=== PATIENT | female | born 1970 | race Caucasian/White ===

== ENCOUNTER 2019-05-01 06:10 | Day surgery (SDC) | payer BC ==
[2019-04-30 11:36] LABS: Absolute Lymphocytes (CBC) 1.3 K/uL (0.7-4.9); Basophils % 0.6 % (0-1.3); Hematocrit 39.6 % (36.0-45.0); Lymphocytes % 26.6 % (15.3-44.8); MPV 8.7 fL (7.6-11.3); RBC Red Blood Cell Count 4.62 M/uL (3.86-4.86)
[~2019-05-01 06:10] MED LIST: DOXYCYCLINE 200 MG in NA CHLORIDE 0.9% 250 ML IVPB SCH
[2019-05-01] MEDS ORDERED: Ringers Lactate 1,000 ML IV ONE (06:22)
[2019-05-01] MEDS ORDERED: SILVER NITRATE 1 APPL TOP ONE (06:59)
[2019-05-01] MEDS ORDERED: NA CHLORIDE 0.9% 1,000 ML ONE (06:59)
[2019-05-01] MEDS ORDERED: ONDANSETRON 4 MG/2 ML VIAL ONE (07:12)
[2019-05-01] MEDS ORDERED: FENTANYL CITR 100 MCG/2 ML ONE (07:12)
[2019-05-01] MEDS ORDERED: PROPOFOL 200 MG/20 ML VIAL IV ONE (07:12)
[2019-05-01] MEDS ORDERED: LIDOCAINE 2% MPF 5 ML VIAL ONE (07:12)
[2019-05-01] MEDS ORDERED: MIDAZOLAM HCL 2 MG/2 ML INJ ONE (07:12)
[2019-05-01] MEDS ORDERED: GLYCOPYRROLATE 0.2 MG/ML SYR ONE (07:47)
--- NOTE | 2019-05-01 08:07 | PREOPHP ---
Date of Admission: 05/01/2019 Mrs. Laureano is a 49-year-old female, 2, para 2-0-0-2, who is status post men opause, documented on a couple of different FSH levels, 6 months apart. She has had some problems wi th some irregular bleeding because of this and the inability to do in office endometrial biopsy. She is admitted to day surgery for hysteroscopy, D and C. Past Medical History: Includes 2 vaginal deliveries without difficulties. History of prior endometr ial ablation for heavy bleeding. Current Medications: She is on no medications on a regular basis. She lists allergy to sulfa[QAMARK ER] Lortab causing vomiting. Social History: She does not smoke. Family History: Noncontributory. Review of Systems: She reports no recent cough, cold, fever, or chills. She denies recent nausea or vomiting. She bonilla es breast knots or lumps. She denies any bowel issues or change in vaginal discharge other than the irregular bleeding. Physical Examination: General: Reveals a pleasant female, in no apparent distress. Neck: Supple without adenopathy or thyromegaly. Lungs: Clear. Cardiac: Regular rate and rhythm without murmurs. Breasts: Not examined. Abdomen: Nontender without organomegaly or splenomegaly. Pelvic: Normal female external genitalia. Vaginal wall is pink and rugated. Vaginal vault shows so me thinning expected with menopausal status. Cervix: Multiparous, somewhat stenotic. Bimanual no abnormalities. Extremities: No cyanosis, clubbing, or edema. Impression: Postmenopausal bleeding. Plan: The patient will undergo hysteroscopy, D and C. risks are discussed. She has signed operative permit in my presence. PAUL/CHARLES Voice ID: [id number]
[2019-05-01] MEDS: MEPERIDINE HCL 25 MG/0.5 ML ONE ×2 (08:59→09:07)
[2019-05-01 10:03] VITALS: BP 144/65; TEMP 97.1; O2SAT 98
--- NOTE | 2019-05-05 10:09 | DS ---
Date of Discharge: 05/01/2019 DISMISSAL SUMMARY Final Hospital Discharge Diagnosis: Postmenopausal bleeding. Procedure: Hysteroscopy. Hospital Course: The patient is a 49-year-old female, admitted for hysteroscopy, D and C for postmenopausal bleeding. Unfortunately, hysteroscopic exam of the uterus was incomplete b ecause of intrauterine scarring adhesions post ablation and D and C was not able to be accomplished. Patient was dismissed to be seen back in my office in 2 weeks for followup. Lab work included an ad mission hemoglobin and hematocrit of 13.7 and 39.6. PAUL/CHARLES Voice ID: [id number] Report ID: [id number]
--- NOTE | 2019-05-05 10:09 | OP ---
Surgeon: Shun Torres MD Anesthesiologist: Keyona Orourke and Zachary Leavitt MD. Preoperative Diagnosis: Postmenopausal bleeding. Procedure: Hysteroscopy. Postoperative Diagnosis: Postmenopausal bleeding with intrauterine adhesions. Description Of Procedure: After satisfactory level of general anesthesia was obtained, patient was p repped and draped in the usual fashion in high leg holders. Cervix grasped with single-tooth tenacul um. The hysteroscope introduced, however, would not go beyond the isthmus of the cervix in greater e xtent with multiple intrauterine synechiae or scarring noted. Because of this, visualization of the entire endometrium was not possible and D and C was not able to be accomplished. Patient was awakene d and taken to recovery room in satisfactory condition. PAUL/CHARLES Voice ID: [id number] Report ID: [id number]
== END 2019-05-01 09:55 | disposition home or self-care (01) ==
LOC: OR 06:10
PROVIDERS: ATTEND Specialist
PROC: 0UJD8ZZ Inspection of Uterus and Cervix, Via Natural or Artificial Opening Endoscopic (ICD-10-PCS; principal; 2019-05-01 07:30)
DX: N95.0 Postmenopausal bleeding (principal); N85.6 Intrauterine synechiae; Z88.6 Allergy status to analgesic agent; Z88.2 Allergy status to sulfonamides
CPT/HCPCS: 85025; 36415; 84703; 58555; J2704; J2250; J3010; J2175; J7120; J7030 ×2; J2405

== ENCOUNTER 2019-09-23 06:23 | Day surgery (SDC) | payer BC ==
[2019-09-16 17:18] LABS: Absolute Lymphocytes (CBC) 2.5 K/uL (0.7-4.9); Basophils % 0.6 % (0-1.3); Hematocrit 41.8 % (36.0-45.0); Lymphocytes % 42.4 % (15.3-44.8); MPV 8.4 fL (7.6-11.3)
[2019-09-16 17:21] LABS: Urine Appearance CLEAR; Urine Bilirubin NEGATIVE (NEG); Urine Blood NEGATIVE (NEG); Urine Color YELLOW; Urine Glucose NEGATIVE (NEG); Urine Protein NEGATIVE (NEG); Urine Specific Gravity <=1.005 (1.005-1.030); Urine Urobilinogen 0.2 mg/dL (0.2-1.0); Urine pH 6.5 (5.0-7.0)
[2019-09-16 17:31] LABS: Urine Microscopic Reflex NO UMIC
--- NOTE | 2019-09-17 05:28 | EKG ---
Test Date: 2019-09-16 Test Time: 16:22:14 Residential Direct Support Professional: MARITZA MEASUREMENT RESULTS: Intervals: Rate: 57 TN: 210 QRSD: 82 QT: 404 QTc: 393 [place]: P: 50 TN: 210 QRS: 76 T: 31 INTERPRETIVE STATEMENTS: Sinus bradycardia with 1st degree AV block Otherwise normal ECG Compared to ECG 03/11/2001 06:38:00 First degree AV block now present Sinus tachycardia no longer present Ventricular premature complex(es) no longer present Electronically Signed On 09-17-19 05:27:36 AUDIO RECORDING ENGINEER by Kenny Lau
--- NOTE | 2019-09-17 10:22 | EKG ---
Test Date: 2019-09-16 Test Time: 16:25:34 Geography Professor: MARITZA MEASUREMENT RESULTS: Intervals: Rate: 63 IA: 186 QRSD: 82 QT: 398 QTc: 407 [place]: P: 30 IA: 186 QRS: 77 T: 33 INTERPRETIVE STATEMENTS: Normal sinus rhythm Normal ECG Compared to ECG 09/16/2019 16:22:14 Sinus bradycardia no longer present First degree AV block no longer present Electronically Signed On 09-17-19 10:21:36 TECHNICAL SALES ADVISOR by Kenny Lau
[2019-09-22 10:29] LABS: Specific Gravity >= 1.030 (1.005-1.030)
--- OUTSIDE RECORDS SUMMARY | 2019-09-23 06:28 | XMS REPORT ---
:1970 [facility] Address [address] [place] [address] Dr. Lee [address] [place] [address] Care Team Providers Name Role Phone Unavailable Unavailable Unavailable Problems This patient has no known problems. Allergies, Adverse Reactions, Alerts This patient has no known allergies or adverse reactions. Medications This patient has no known medications.
[2019-09-23] MEDS ORDERED: CEFAZOLIN/SWI 2gm 2 GM/20 ML SYR ONE (06:54)
[2019-09-23] MEDS ORDERED: SCOPOLAMINE HYDROBROMIDE PATCH TD ONE ×2 (06:54→07:05)
[2019-09-23] MEDS ORDERED: Ringers Lactate 1,000 ML IV ONE ×3 (06:54→10:49)
[2019-09-23] MEDS ORDERED: propofoL 200 MG/20 ML VIAL IV ONE (07:14)
[2019-09-23] MEDS ORDERED: MIDAZOLAM HCL 2 MG/2 ML INJ ONE (07:14)
[2019-09-23] MEDS ORDERED: LIDOCAINE 2% MPF 5 ML VIAL ONE (07:15)
[2019-09-23] MEDS ORDERED: FENTANYL CITR 250 MCG/5 ML ONE (07:15)
[2019-09-23] MEDS ORDERED: GLYCOPYRROLATE 0.2 MG/ML SYR ONE (07:15)
[2019-09-23] MEDS ORDERED: BUPIVACAINE 0.25% PF 30 ML VIAL ONE (07:22)
[2019-09-23] MEDS ORDERED: ONDANSETRON 4 MG/2 ML VIAL ONE ×2 (07:23→10:54)
[2019-09-23] MEDS ORDERED: ROCURONIUM 50 MG/5 ML VIAL IV ONE (08:26)
[2019-09-23] MEDS ORDERED: EPHEDRINE SULF 50 MG/ML VIAL ONE (09:31)
[2019-09-23] MEDS ORDERED: dexAMETHasone 10 MG/ML VIAL ONE (09:32)
[2019-09-23] MEDS ORDERED: KETOROLAC 30 MG/ML INJ ONE (09:33)
[2019-09-23] MEDS ORDERED: MEPERIDINE HCL 25 MG/0.5 ML ONE (09:45)
[2019-09-23] MEDS: HYDROMORPHONE HCL 1 MG/ML INJ ONE ×7 (10:52→11:26)
[2019-09-23] MEDS ORDERED: HYDROCODONE/APAP 5/325 MG TAB ONE (12:18)
[2019-09-23] MEDS ORDERED: IBUPROFEN 200 MG TAB PO ONE (15:13)
[2019-09-23 16:34] VITALS: BP 122/57; TEMP 97.4; O2SAT 100
--- NOTE | 2019-09-23 20:02 | OP ---
Date of Procedure: 09/23/2019 Surgeon: Charamine Gomez MD Supervisor Sanding: Klarissa Johnson. Preoperative Diagnoses: Recurrent menorrhagia, pelvic pain. Patient is status post ablation. Postoperative Diagnoses: Recurrent menorrhagia, pelvic pain. Patient is status post ablation. Procedures Performed: Total laparoscopic hysterectomy, bilateral salpingo-oophorectomy, cystoscopy, and superficial bladder oversew of the laceration. Anesthesia: General endotracheal. Estimated Blood Loss: 50. Specimens: Uterus, bilateral tubes and ovaries. Findings: The uterine cavity was ablated. Canal could not be identified and placement of the VCare was extremely limited and had to be only in the distal part of the endometrial canal. The fixation o f the VCare cup was difficult as well due to this. Intra-abdominally, ovaries, tubes, uterus unremarkable at the level of the bladder. There appeared t o be dense adhesions from the dome of the bladder to the lower aspect of the uterus. Here, the disse ction was performed to expose the VCare cup, partially difficult due to the cup placement due to subo ptimal cannulization and also likely some inflammation in this area. Indications For Procedure: Patient is a 49-year-old, referred to me by Dr. Torres. She had an ab lation in the past for heavy bleeding. She had recurrent bleeding and since she was 49 and perimenop ausal, endometrial sampling was deemed to be important. Attempt was made by him to visualize with th e hysteroscope, but due to the intrauterine adhesions, he was unable to enter the uterine cavity, so she was referred to me and after examination, she had suprapubic tenderness and fundal tenderness as well and suspicion for either a hematometra or very uncommon to help pyometra that were suspected. D iscussed with the patient about the different options, which included attempt to recanalized with the help of scissors during the hysteroscope. However, the downside to this would be that it would be r estenosed and possibly lead to the same problem as we are dealing with now and the other option is to do hysterectomy including removal of tubes and ovaries. After discussing both options, benefits and risks and recovery time for both, she was consented to have the hysterectomy. Description Of Procedure: She was brought to the OR. 2 g of Ancef were given. The patient was plac ed in a supine fashion on the operating table. General anesthesia was given, placed in a dorsal lith otomy position. Arms tucked by the side. Pelvic exam performed uterus anteflexed. Abdomen, vulva, vagina and perineum prepped and draped in a sterile fashion. Casper placed to drain t he bladder and speculum placed to expose the cervix. Anterior lip held with the Allis clamp. This a raulito was then draped. A 1 cm infraumbilical incision was made with a scalpel using the open laparosco py technique fascia and was incised, tagged with 0 Vicryl sutures. Peritoneum entered sharply and S- retractors placed. Colby introduced. Insufflation was done. Site of entry was checked, it was unr emarkable. A 10 mm suprapubic and 5 mm left lower quadrant incisions were placed. Trocars introduce d under direct vision. Then, the uterus was visualized and no other adhesions appeared to be on the anterior aspect of the uterine wall. So went back down and attempt was placed to further progress wi th the uterine sound, but it was very difficult to advance past 5.5 cm. So, at this point, the sound was removed. The VCare was introduced. The probe to 5.5 bulb inflated and then the cup fixed in pl jered. Casper was connected to LR bag, emptied 500. This was for filling as well as for emptying. After changing my gloves, went back to the laparoscopic part. Both ureters were coursing in the norm al way without any distortion. Both tubes and ovaries normal. Minimal endometriosis seen in the pos terior aspect of the uterus, where the uterosacrals were attached to the top of the vagina and then v shamir minimal endometriosis in the periureteric area in the proximal part of the pelvic ureter on the l eft side. Ovaries, tubes were first , first on the left side. The tubo-ovarian ligament, m esosalpinx tube and round ligament were all taken down. Then, the peritoneum opened up anteriorly an d dissection performed to get to the bladder flap here as the dissection was being performed. There was dense tissue which was not letting the peritoneum peel off and the area of the anterior vaginal w all got into what appeared to be detrusor muscle fibers. So, then this area was left alone, then too k down the posterior peritoneum all the way to the uterosacral. Then, broad ligament was skeletonize d to expose the vessels on the left side then on the right side. Went on to the opposite side taking down the utero-ovarian ligament, round ligament, mesosalpinx, tube, then posterior broad ligament ta jaqueline to the uterosacral on the right side and then anterior join with the bladder flap from the other side. The broad ligament was taken down, vessels skeletonized anteriorly. The bladder appeared to b e much more dense, unsure if there was inflammation, may be endometriosis unsure. So, I found the VC are cup in the proximal part of it hugging close to the uterus. The vessels were taken down on the r ight side with the bipolar basket tip and the LigaSure. Then, once I got access to the anterior wall , the bladder was further taken down here and then I was able to identify the anterior vaginal wall v shamir well. The vesicovaginal space was entered. The bladder was dissected inferiorly here. Then, ca rdinal ligaments were taken down with the help of the LigaSure on the right side, then on the left si de, went to take down the rest of the bladder adhesions and dissected down. Then the vessels were ta jaqueline down with the bipolar basket tip and the LigaSure and the cardinal ligament was taken down with t he LigaSure. Then, monopolar hook blade used to perform a circumferential colpotomy. Specimen retri eved through the vagina. The tubes and ovaries were removed with the help of the LigaSure and retrie shayan through the vagina and the suprapubic port. Thorough irrigation and suction were performed. The edges of the colpotomy were cauterized in the an terior and posterior aspects with a medium tip bipolar, not much cautery need to be used. Thorough i rrigation and suction were performed. All pedicles were completely dry and plan was to close the col potomy. With the help of 0 Vicryl, CT-1 needle was taken and angle stitch placed on the right side. Then, a qlumhs-yl-xsagi including the uterosacral and reattaching into the anterior and posterior va ginal wall was done on the left side. Similarly, a simple 0 Vicryl stitch lateral to the angle was p laced and then 0 Vicryl stitch through the uterosacral was placed to reattached to the anterior poste rior vaginal shi and closure was completed with another 5th ndqstm-as-ytgfq suture in the middle wi th 0 Vicryl. After this was done completely, thorough irrigation and suction were performed with exc ellent hemostasis here. Then, attention was directed to the area, where the detrusor fibers were exp osed and dissection was done here looking for the plane for the anterior vaginal wall and the cup kesha eared to have a superficial laceration on the detrusor, so a 3-0 Vicryl suture was taken in a continu ous running fashion, closed this about 2 cm area on the left lateral aspect on the dome. This was do ne without any problem. It was not closed to the ureter. Again, it was in the anterior wall, slight ly lateral. Then, the bladder was filled and tested even before the repair was done. Then, again af ter the repair, there was no evidence of any urinary leakage. There was not even visualization of th e bladder urothelium. It was not deep enough to see it. After thorough irrigation was performed of the bladder, bladder was then drained with a Casper. Then, I went on to remove all the trocars. The trocar sites fascia at the suprapubic and the umbilicus we re closed with [id number] 0 Vicryl sutures and interrupted 4-0 Vicryl sutures in all incisions a nd Dermabond. The vaginal bulb was removed. The Casper was removed. Cystoscopy was performed with a 17-[place] sheath, 30-degree lens, normal saline. There were strong ureteric jets from both ureteric orifices. No other anomaly was noted. No evidence of any sutures. No evidence of any trauma or br uising. The laceration was very superficial and this was confirmed after the cystoscopy as well. So , plan was to leave the Casper out and just give time voiding instructions and frequent voids for the patient. No need for a Casper drainage. Vagina was cleaned up. The bladder was drained. Instrument , needle, and sponge counts were done and were correct at end of the case. The patient tolerated the procedure well. She was recovered from anesthesia and taken to PACU in stable condition. GIANCARLO/CHARLES Voice ID: [id number] Report ID: [id number]
== END 2019-09-23 15:45 | disposition home or self-care (01) ==
LOC: OR 06:23
PROVIDERS: ATTEND Obstetrics & Gynecology
PROC: 0UT24ZZ Resection of Bilateral Ovaries, Percutaneous Endoscopic Approach (ICD-10-PCS; 2019-09-23)
PROC: 0UT74ZZ Resection of Bilateral Fallopian Tubes, Percutaneous Endoscopic Approach (ICD-10-PCS; 2019-09-23)
PROC: 0TQB0ZZ Repair Bladder, Open Approach (ICD-10-PCS; 2019-09-23)
PROC: 0UT94ZZ Resection of Uterus, Percutaneous Endoscopic Approach (ICD-10-PCS; principal; 2019-09-23 07:30)
DX: N92.6 Irregular menstruation, unspecified (principal); N99.71 Accidental puncture and laceration of a genitourinary system organ or structure during a genitourinary system procedure; Y65.8 Other specified misadventures during surgical and medical care; Y92.234 Operating room of hospital as the place of occurrence of the external cause; R10.2 Pelvic and perineal pain; N95.1 Menopausal and female climacteric states; Z98.890 Other specified postprocedural states; Z88.6 Allergy status to analgesic agent; Z88.2 Allergy status to sulfonamides; Z80.0 Family history of malignant neoplasm of digestive organs
CPT/HCPCS: 93005 ×2; 85025; 36415; 86900; 86850; 81025; 86901; 88307; 81003; 58571; 51860; J2704; J2250; J3010; J1100; J2175; J1170 ×3; J0690; J7120 ×3; J2405 ×2

== ENCOUNTER 2020-09-18 12:12 | Emergency (ER) | payer BC ==
--- OUTSIDE RECORDS SUMMARY | 2020-09-18 12:15 | XMS REPORT | Continuity of Care Document ---
:1970 Author Organization [facility] t Address [address] [place] [address] Dr. Archer. [address] [place] [address] Care Team Providers Name Role Phone Radiology Attending Clinician Unavailable Problems This patient has no known problems. Allergies, Adverse Reactions, Alerts This patient has no known allergies or adverse reactions. Medications This patient has no known medications. Procedures This patient has no known procedures. Encounters Start End Encounter Admission Attending Care Care Encounter Source Date/Time Date/Time Type Type Clinicians Facility Department ID 2019-04-03 2019-04-03 [facility] Radiology [facility] [id number] 08:25:34 23:59:00 Encounter [place] [id number] [place] [id number] [place] [id number] Results This patient has no known results.
--- NOTE | 2020-09-18 13:47 | ER ---
Nurse's Notes [facility] Name: Shabana Laureano Age: 50 yrs Sex: Female : 1970 Arrival Date: 09/18/2020 Time: 12:14 Bed 20 Private MD: Diagnosis: Local infection of the skin and subcutaneous tissue, unspecified Presentation: 09/18 12:30 Chief complaint: Patient states: "starting Sunday my right hand was feeling funny, jd3 but I did not think anything of it. later that day I noticed what might be a cyst forming or something, the next day it moved and my had has been swelling ever since. it will get bigger then go down so I don't know if it is an infection or what.". Coronavirus screen: At this time, the client does not indicate any symptoms associated with coronavirus-19. Ebola Screen: Patient negative for fever greater than or equal to 101.5 degrees Fahrenheit, and additional compatible Ebola Virus Disease symptoms. Initial Sepsis Screen: Does the patient meet any 2 criteria? No. Patient's initial sepsis screen is negative. Does the patient have a suspected source of infection? No. Patient's initial sepsis screen is negative. Risk Assessment: Do you want to hurt yourself or someone else? Patient reports no desire to harm self or others. Onset of symptoms was September 18, 2020. 12:30 Method Of Arrival: Ambulatory jd3 12:30 Acuity: ALIZA 4 jd3 Triage Assessment: 12:30 General: Appears in no apparent distress. uncomfortable, Behavior is cooperative, bp appropriate for age, anxious. Pain: Complains of pain in right hand. EENT: No deficits noted. Neuro: No deficits noted. Cardiovascular: No deficits noted. Respiratory: No deficits noted. GI: No signs and/or symptoms were reported involving the gastrointestinal system. : No signs and/or symptoms were reported regarding the genitourinary system. Derm: No deficits noted. Musculoskeletal: No deficits noted. CULINARY MANAGER: 12:35 LMP N/A - Hysterectomy jd3 Historical: - Allergies: 12:35 Sulfa (Sulfonamide Antibiotics); jd3 - Home Meds: 12:35 vitamins [Active]; jd3 - PMHx: 12:35 None; jd3 - PSHx: 12:35 4 right wrist sx; Hysterectomy; Cholecystectomy; jd3 - Immunization history:: Adult Immunizations up to date. - Social history:: Smoking status: Patient denies any tobacco usage or history of. Screenin:45 Abuse screen: Denies threats or abuse. Denies injuries from another. Nutritional bp screening: No deficits noted. Tuberculosis screening: No symptoms or risk factors identified. Fall Risk None identified. Assessment: 12:30 General: SEE TRIAGE NOTE. bp 13:17 Reassessment: No changes from previously documented assessment. Patient and/or family bp updated on plan of care and expected duration. Pain level reassessed. Patient is alert, oriented x 3, equal unlabored respirations, skin warm/dry/pink. U/S AT B/S. 14:14 Reassessment: Patient appears in no apparent distress at this time. Patient and/or rb3 family updated on plan of care and expected duration. Pain level reassessed. Patient is alert, oriented x 3, equal unlabored respirations, skin warm/dry/pink. Vital Signs: 12:35 BP 125 / 52; Pulse 70; Resp 16 S; Temp 97.1(TE); Pulse Ox 100% on R/A; Weight 63.05 kg jd3 (R); Height 5 ft. 3 in. (160.02 cm) (R); Pain 2/10; 14:14 BP 106 / 57; Pulse 75; Resp 16; Pulse Ox 100% ; rb3 12:35 Body Mass Index 24.62 (63.05 kg, 160.02 cm) jd3 ED Course: 12:14 Patient arrived in ED. ag5 12:23 Vikas Page, RN is Primary Nurse. bp 12:23 Denzel Mendez MD is Attending Physician. rn 12:24 Sujey Renteria FNP-C is PHCP. kb 12:33 Triage completed. jd3 12:37 Arm band placed on. jd3 12:45 Patient has correct armband on for positive identification. Bed in low position. Call bp light in reach. Side rails up X2. 14:14 US Extremity Venous Unilateral Ltd In Process Unspecified. EDMS 14:15 No provider procedures requiring assistance completed. Patient did not have IV access rb3 during this emergency room visit. Administered Medications: 14:12 Drug: KeFLEX 500 mg Route: PO; rb3 14:14 Follow up: Response: Medication administered at discharge. rb3 Outcome: 13:46 Discharge ordered by . kb 14:15 Discharged to home ambulatory. rb3 14:15 Condition: stable 14:15 Discharge instructions given to patient, Instructed on discharge instructions, follow up and referral plans. medication usage, Demonstrated understanding of instructions, follow-up care, medications, Prescriptions given X 1. 14:17 Patient left the ED. rb3 Signatures: Dispatcher [employer] EDMS Sujey Renteria, STAFF READINESS OFFICER-C STAFF READINESS OFFICER-Ckb Denzel Mendez MD MD rn Davies, Jonathon RN RN jVikas Elliott RN RN Don Cagle ag5 Nikki Ball, RN RN rb3 Corrections: (The following items were deleted from the chart) 13:18 12:30 Pain: Complains of pain in left hand bp bp
--- NOTE | 2020-09-18 13:47 | EDPHYS ---
Physician Documentation [facility] Name: Shabana Laureano Age: 50 yrs Sex: Female : 1970 Arrival Date: 09/18/2020 Time: 12:14 Bed 20 Private MD: ED Physician Denzel Mendez HPI: 09/18 13:25 This 50 yrs old Female presents to ER via Ambulatory with complaints of Hand kb Swelling. 13:25 The patient has not experienced similar symptoms in the past. The patient has not kb recently seen a physician. Pt reports a weird sensation started in right hand on Sunday. States a knot popped up on near thumb on dorsal surface, then moved to center of hand on Sunday. Now hand is swollen. States she wanted to make sure it wasn't an infection. States she didn't injure it in any way, but does have a new puppy at home that is playful and could have bit her at some point. 13:27 The patient or guardian reports swelling. The complaints affect the dorsum of right kb hand. Context: resulted from an unknown cause. Onset: The symptoms/episode began/occurred 4 day(s) ago. Modifying factors: The symptoms are alleviated by nothing, the symptoms are aggravated by nothing. Associated signs and symptoms: The patient has no apparent associated signs or symptoms. Severity of symptoms: At their worst the symptoms were mild, moderate, in the emergency department the symptoms are unchanged. 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 - Social history:: Smoking status: Patient denies any tobacco usage or history of. ROS: 14:00 Constitutional: Negative for fever, chills, and weight loss, Neuro: Negative for kb headache, weakness, numbness, tingling, and seizure. 14:00 MS/extremity: Positive for pain, swelling. 14:00 Skin: Positive for erythema, swelling, of the dorsum of right hand. Exam: 14:14 Constitutional: This is a well developed, well nourished patient who is awake, alert, kb and in no acute distress. Head/Face: Normocephalic, atraumatic. MS/ Extremity: Pulses equal, no cyanosis. Neurovascular intact. Full, normal range of motion. 14:14 Skin: cellulitis, that is minimal, on the dorsum of right hand. Vital Signs: 12:35 BP 125 / 52; Pulse 70; Resp 16 S; Temp 97.1(TE); Pulse Ox 100% on R/A; Weight 63.05 kg jd3 (R); Height 5 ft. 3 in. (160.02 cm) (R); Pain 2/10; 14:14 BP 106 / 57; Pulse 75; Resp 16; Pulse Ox 100% ; rb3 12:35 Body Mass Index 24.62 (63.05 kg, 160.02 cm) jd3 MDM: 12:23 Patient medically screened. rn 13:25 Data reviewed: vital signs, nurses notes. Data interpreted: Pulse oximetry: on room air kb is 100 %. Interpretation: normal. 13:46 Counseling: I had a detailed discussion with the patient and/or guardian regarding: the kb historical points, exam findings, and any diagnostic results supporting the discharge/admit diagnosis, radiology results, the need for outpatient follow up, a family practitioner, to return to the emergency department if symptoms worsen or persist or if there are any questions or concerns that arise at home. 09/18 12:33 Order name: US Extremity Venous Unilateral Ltd kb Administered Medications: 14:12 Drug: KeFLEX 500 mg Route: PO; rb3 14:14 Follow up: Response: Medication administered at discharge. rb3 Disposition: 14:29 Co-signature as Attending Physician, Denzel Mendez MD. rn Disposition: 09/18/20 13:46 Discharged to Home. Impression: Local infection of the skin and subcutaneous tissue, unspecified. - Condition is Stable. - Discharge Instructions: Cellulitis, Adult, [id number]. - Prescriptions for Keflex 500 mg Oral Capsule - take 1 capsule by ORAL route every 8 hours for 10 days; 30 capsule. - Medication Reconciliation Form, Thank You Letter, Antibiotic Education, Prescription Opioid Use form. - Follow up: Emergency Department; When: As needed; Reason: Worsening of condition. Follow up: Private Physician; When: 2 - 3 days; Reason: Recheck today's complaints, Continuance of care, Re-evaluation by your physician. Signatures: Dispatcher [employer] Sujey Herrera, LUIS ENRIQUE-Devang DUDLEY-Denzel Espinoza MD MD rn Davies, Jonathon, RN RN jd3 Nikki Ball, RN RN rb3 Corrections: (The following items were deleted from the chart) 14:17 13:46 09/18/2020 13:46 Discharged to Home. Impression: Local infection of the skin and rb3 subcutaneous tissue, unspecified. Condition is Stable. Forms are Medication Reconciliation Form, Thank You Letter, Antibiotic Education, Prescription Opioid Use. Follow up: Emergency Department; When: As needed; Reason: Worsening of condition. Follow up: Private Physician; When: 2 - 3 days; Reason: Recheck today's complaints, Continuance of care, Re-evaluation by your physician. kb
[2020-09-18] MEDS ORDERED: CEPHALEXIN 250 MG CAP ONE (14:28)
--- NOTE | 2020-09-18 14:34 | RAD REPORT ---
EXAM DESCRIPTION: USExtremity Venous Uni Ltd09/18/2020 2:13 pm CLINICAL HISTORY: Right arm swelling and pain COMPARISON: None FINDINGS: The right internal jugular, right subclavian, right cephalic, right axillary, right brach ial, right antecubital veins are generally compressible and demonstrate augmentation. Doppler demonst rates good flow. IMPRESSION: No evidence of thrombus within the veins of the right upper extremity
[2020-09-18 14:42] VITALS: BP 106/57; O2SAT 100
[2020-09-18 14:43] VITALS: TEMP 97.1
== END 2020-09-18 14:17 | disposition home or self-care (01) ==
LOC: ER 12:12
DX: L03.113 Cellulitis of right upper limb (principal); Z88.2 Allergy status to sulfonamides
CPT/HCPCS: 93971; 99283

== ENCOUNTER 2020-09-22 09:31 | Emergency (ER) | payer BC ==
--- OUTSIDE RECORDS SUMMARY | 2020-09-22 09:33 | XMS REPORT | Continuity of Care Document ---
:1970 Author Organization [facility] t Address [address] [place] [address] [address]. [address]. [address] [place] [address] Care Team Providers Name Role Phone Radiology [...] Type Clinicians Facility Department ID 2019-04-03 2019-04-03 [facility] Radiology [facility] [id number] 08:25:34 23:59:00 Encounter [place] [id number] [place] [id number] [place] [id number] Results This patient has no known results.
--- NOTE | 2020-09-22 11:14 | ER ---
Nurse's Notes [facility] Name: Shabana Laureano Age: 50 yrs Sex: Female : 1970 Arrival Date: 09/22/2020 Time: 09:32 Bed 10 Private MD: Diagnosis: Cellulitis of right upper limb;Paresthesia of skin Presentation: 09/22 10:12 Chief complaint: Patient states: Was here Sunday for swelling, pain, numbness of R ca1 arm. Had a CT of the R arm, they treated it as infection. The swelling is down now but the pain seems to be more and going up to my R elbow and R shoulder. But what bothers me more is the numbness. Coronavirus screen: Client denies travel out of the [place] in the last 14 days. At this time, the client does not indicate any symptoms associated with coronavirus-19. Ebola Screen: Patient negative for fever greater than or equal to 101.5 degrees Fahrenheit, and additional compatible Ebola Virus Disease symptoms Patient denies exposure to infectious person. Patient denies travel to an Ebola-affected area in the 21 days before illness onset. No symptoms or risks identified at this time. Initial Sepsis Screen: Does the patient meet any 2 criteria? No. Patient's initial sepsis screen is negative. Does the patient have a suspected source of infection? No. Patient's initial sepsis screen is negative. Risk Assessment: Do you want to hurt yourself or someone else? Patient reports no desire to harm self or others. Onset of symptoms was September 22, 2020. 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 - Social history:: Smoking status: Patient denies any tobacco usage or history of. - Family history:: not pertinent. - Hospitalizations: : No recent hospitalization is reported. Screenin:40 Abuse screen: Denies threats or abuse. Nutritional screening: No deficits noted. aa5 Tuberculosis screening: No symptoms or risk factors identified. Fall Risk None identified. Assessment: 10:40 General: Appears comfortable, Behavior is calm, cooperative. Pain: Complains of pain in aa5 right arm Pain currently is 5 out of 10 on a pain scale. Quality of pain is described as numb, Is intermittent. Neuro: Level of Consciousness is awake, alert, obeys commands, Oriented to person, place, time, situation, Appropriate for age Gait is steady, Speech is normal. Cardiovascular: Patient's skin is warm and dry. Respiratory: Airway is patent Respiratory effort is even, unlabored, Respiratory pattern is regular, symmetrical. GI: No signs and/or symptoms were reported involving the gastrointestinal system. : No signs and/or symptoms were reported regarding the genitourinary system. EENT: No signs and/or symptoms were reported regarding the EENT system. Derm: Skin is pink, warm \T\ dry. Musculoskeletal: Range of motion: intact in all extremities. 11:35 Reassessment: Patient is alert, oriented x 3, equal unlabored respirations, skin aa5 warm/dry/pink. Vital Signs: 10:12 BP 131 / 55; Pulse 72; Resp 16 S; Temp 98.4(O); Pulse Ox 100% on R/A; Weight 63.05 kg ca1 (R); Height 5 ft. 2 in. (157.48 cm) (R); Pain 5/10; 10:12 Body Mass Index 25.42 (63.05 kg, 157.48 cm) ca1 ED Course: 09:32 Patient arrived in ED. ag5 10:15 Triage completed. ca1 10:17 Arm band placed on right wrist. ca1 10:37 Africa Baron, RN is Primary Nurse. aa5 10:37 Denzel Mendez MD is Attending Physician. rn 10:40 Patient has correct armband on for positive identification. Bed in low position. aa5 11:35 No provider procedures requiring assistance completed. Patient did not have IV access aa5 during this emergency room visit. Administered Medications: 11:05 Drug: Decadron 10 mg Route: IM; Site: right gluteus; aa5 11:35 Follow up: Response: No adverse reaction aa5 Outcome: 11:14 Discharge ordered by . rn 11:35 Discharged to home ambulatory. aa5 11:35 Condition: stable 11:35 Discharge instructions given to patient, Instructed on discharge instructions, follow up and referral plans. medication usage, Demonstrated understanding of instructions, follow-up care, medications, Prescriptions given X 2. 11:37 Patient left the ED. aa5 Signatures: Denzel Mendez MD MD rn Calderon, Audri, RN RN aa5 Johanna Higuera RN RN ca1 [place], [facility]
--- NOTE | 2020-09-22 11:14 | EDPHYS ---
Physician Documentation [facility] Name: Shabana Laureano Age: 50 yrs Sex: Female : 1970 Arrival Date: 09/22/2020 Time: 09:32 Bed 10 Private MD: ED Physician Denzel Mendez HPI: 09/22 11:09 This 50 yrs old Female presents to ER via Ambulatory with complaints of Hand rn Swelling, Numbness Of Arm. 11:09 The patient or guardian reports pain, swelling. The complaints affect the right hand rn diffusely. Onset: The symptoms/episode began/occurred 4 day(s) ago. Modifying factors: The symptoms are alleviated by nothing, the symptoms are aggravated by nothing. Severity of symptoms: At their worst the symptoms were moderate, in the emergency department the symptoms have improved. The patient has not experienced similar symptoms in the past. The patient has been recently seen by a physician:. Reports seen recently for right arm pain and swelling, given abx and neg u/s, now returns for intermittent tingling and numbness of RUE. No trauma. Swelling has improved but not resolved. . 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 - Social history:: Smoking status: Patient denies any tobacco usage or history of. - Family history:: not pertinent. - Hospitalizations: : No recent hospitalization is reported. ROS: 11:09 Constitutional: Negative for fever, chills, and weight loss, Neck: Negative for injury, rn pain, and swelling, Cardiovascular: Negative for chest pain, palpitations, and edema, Respiratory: Negative for shortness of breath, cough, wheezing, and pleuritic chest pain, Abdomen/GI: Negative for abdominal pain, nausea, vomiting, diarrhea, and constipation, Back: Negative for injury and pain, MS/Extremity: + right arm tingling and numbness Skin: Negative for injury, rash, and discoloration, Neuro: Negative for headache, weakness, numbness, tingling, and seizure. Exam: 11:09 Constitutional: This is a well developed, well nourished patient who is awake, alert, rn and in no acute distress. Skin: Warm, dry MS/ Extremity: Pulses equal, no cyanosis. Neurovascular intact. Full, normal range of motion. Mild swelling at dorsum of right hand and wrist, no streaking, no fluctuance, mild warmth compared to LUE. Vital Signs: 10:12 BP 131 / 55; Pulse 72; Resp 16 S; Temp 98.4(O); Pulse Ox 100% on R/A; Weight 63.05 kg ca1 (R); Height 5 ft. 2 in. (157.48 cm) (R); Pain 5/10; 10:12 Body Mass Index 25.42 (63.05 kg, 157.48 cm) ca1 MDM: 10:37 Patient medically screened. rn 11:09 Differential diagnosis: swelling, edema, cellulitis, radiculopathy, neuropathy. Data rn reviewed: vital signs, nurses notes, old medical records, and as a result, I will discharge patient. Counseling: I had a detailed discussion with the patient and/or guardian regarding: the historical points, exam findings, and any diagnostic results supporting the discharge/admit diagnosis, radiology results, the need for outpatient follow up, to return to the emergency department if symptoms worsen or persist or if there are any questions or concerns that arise at home. Special discussion: I discussed with the patient/guardian in detail that at this point there is no indication for admission to the hospital. It is understood, however, that if the symptoms persist or worsen the patient needs to return immediately for re-evaluation. Administered Medications: 11:05 Drug: Decadron 10 mg Route: IM; Site: right gluteus; aa5 11:35 Follow up: Response: No adverse reaction aa5 Disposition: 09/22/20 11:14 Discharged to Home. Impression: Cellulitis of right upper limb, Paresthesia of skin. - Condition is Stable. - Discharge Instructions: Cellulitis, Adult, Paresthesia. - Prescriptions for Clindamycin HCl 300 mg Oral Capsule - take 1 capsule by ORAL route every 6 hours for 10 days; 40 capsule. Medrol (Caden) 4 mg Oral Tablets, Dose Pack - take 1 tablet by ORAL route as directed - follow package instructions; 1 packet. - Medication Reconciliation Form, Thank You Letter, Antibiotic Education, Prescription Opioid Use form. - Follow up: Private Physician; When: As needed; Reason: Recheck today's complaints, Re-evaluation by your physician. - Problem is new. - Symptoms have improved. Signatures: Denzel Mendez MD MD rn Calderon, Audri, RN RN aa5 Johanna Higuera RN RN ca1 Corrections: (The following items were deleted from the chart) 11:37 11:14 09/22/2020 11:14 Discharged to Home. Impression: Cellulitis of right upper limb; aa5 Paresthesia of skin. Condition is Stable. Forms are Medication Reconciliation Form, Thank You Letter, Antibiotic Education, Prescription Opioid Use. Follow up: Private Physician; When: As needed; Reason: Recheck today's complaints, Re-evaluation by your physician. Problem is new. Symptoms have improved. rn
[2020-09-22] MEDS ORDERED: dexAMETHasone 10 MG/ML VIAL ONE (11:25)
[2020-09-22 12:06] VITALS: BP 131/55; TEMP 98.4; O2SAT 100
== END 2020-09-22 11:37 | disposition home or self-care (01) ==
LOC: ER 09:31
DX: L03.113 Cellulitis of right upper limb (principal); R20.2 Paresthesia of skin
CPT/HCPCS: 96372; 99283; J1100